=== PATIENT | female | born 1965 | race Caucasian/White ===

== ENCOUNTER 2017-08-24 17:02 | Emergency (ER) | payer MEDICAID, OTHER ==
[~2017-08-24] VITALS: Ht 152.4 cm; Wt 55.0 kg
[~2017-08-24 17:02] MED LIST: GABA800T PO; LEVEMIR SQ; METF500 PO; METH5TAB PO; NOVOLOGSS SQ; SIMV20 PO
[2017-08-24 17:11] VITALS: BP_SYST 138; PULSE 81; RESP 16; TEMP 97.8; O2SAT 98
--- NOTE | 2017-08-24 17:39 | RADRPT ---
EXAM DATE/TIME: 08/24/2017 17:18 [place] COMPARISON: CHEST SINGLE AP, August 17, 2015, 16:15. INDICATIONS : Chest pain MEDICAL HISTORY : Hepatitis C. Diabetes mellitus type 2. SURGICAL HISTORY : Tubal ligation. Breast augmentation ENCOUNTER: Initial ACUITY: 1 day PAIN SCORE: 2/10 LOCATION: chest FINDINGS: PA and lateral views of the chest demonstrate the lungs to be symmetrically aerated without evidence of mass, infiltrate or effusion. The cardiomediastinal contours are unremarkable. Osseous structure s are intact. CONCLUSION: 1. No acute cardiopulmonary disease. Tanmay Joiner MD on August 24, 2017 at 17:37 Board Certified Radiologist. This report was verified electronically.
[2017-08-24 18:13] LABS: AUTOMATED NEUTROPHIL # 4.2 TH/MM3 (1.8-7.7); BASOPHIL % 0.3 % (0.0-2.0); EOSINOPHIL # 0.2 TH/MM3 (0-0.4); EOSINOPHIL % 2.7 % (0.0-4.0); HEMATOCRIT 37.3 % (35.0-46.0); HEMOGLOBIN 13.2 GM/DL (11.6-15.3); LYMPH % 37.1 % (9.0-44.0); LYMPHOCYTE # 2.9 TH/MM3 (1.0-4.8); MEAN CELL VOLUME 92.2 FL (80.0-100.0); MEAN CORPUSCULAR HEMOGLOBIN 32.7 PG (27.0-34.0); MEAN CORPUSCULAR HGB CONC 35.5 % (32.0-36.0); MEAN PLATELET VOLUME 9.1 FL (7.0-11.0); MONO % 6.7 % (0.0-8.0); MONOCYTE # 0.5 TH/MM3 (0-0.9); NEUT % 53.2 % (16.0-70.0); PLATELET COUNT 153 TH/MM3 (150-450); RED BLOOD COUNT 4.04 MIL/MM3 (4.00-5.30); WHITE BLOOD COUNT 7.9 TH/MM3 (4.0-11.0)
[2017-08-24 18:24] LABS: INTERNATIONAL NORMALIZED RATIO 1.1 RATIO; PROTHROMBIN TIME - PATIENT 11.3 SEC (9.8-11.6)
[2017-08-24 18:35] LABS: BICARBONATE 28.2 MEQ/L (21.0-32.0); BLOOD UREA NITROGEN 11 MG/DL (7-18); CALCIUM 9.3 MG/DL (8.5-10.1); CHLORIDE 105 MEQ/L (98-107); CREATININE 0.67 MG/DL (0.50-1.00); GLOMERULAR FILTRATION RATE 93 ML/MIN (>89); GLUCOSE,RANDOM 112 MG/DL (74-106); SODIUM (NA) 139 MEQ/L (136-145)
[2017-08-24 18:38] LABS: TROPONIN I LESS THAN 0.02 NG/ML (0.02-0.05)
--- NOTE | 2017-08-24 23:44 | EKG ---
Date Performed: 08/24/2017 Time Performed: 17:54:33 PTAGE: 52 years EKG: Sinus rhythm NON-SPECIFIC ANTERIOR T WAVE CHANGES PREVIOUS TRACING : 08/18/2015 04.50 Since the prior tracing, there has been no significan t change DOCTOR: Cam Bateman Interpretating Date/Time 08/24/2017 23:44:09
== END 2017-08-24 20:10 | disposition left against medical advice (07) ==
LOC: NED 17:02
DX: R07.9 Chest pain, unspecified (principal); Z53.21 Procedure and treatment not carried out due to patient leaving prior to being seen by health care provider
CPT/HCPCS: 71046; 80048; 82550; 84484; 85025; 85610; 85730; 93005; 99281